=== PATIENT | female | born 1955 | race Caucasian/White ===

== ENCOUNTER 2018-10-03 13:40 | Day surgery (SDC) | payer BC, OTHER ==
[2018-10-03] MEDS ORDERED: BUPIVACAINE HCL/PF 0.5% (5 MG/ML) 30 ML VIAL IJ ONE (14:00)
[2018-10-03] MEDS ORDERED: LIDOCAINE HCL 1%, 10 MG/ML (20ML VIAL) PNB ONE (14:00)
[2018-10-03 14:18] VITALS: BMI 26.7
[2018-10-03] MEDS ORDERED: ROPIVACAINE HCL 0.5% 30ML VIAL ONE (14:58)
--- NOTE | 2018-10-03 15:09 | HP ---
[facility]ellite [facility] - Chief Complaint Chief Complaint: right wrist pain History of Present Illness: s/p fall, right distal radius fracture History Source: Patient Limitations to Obtaining History: No Limitations - Past Medical History Allergies/Adverse Reactions: Allergies Allergy/AdvReac Type Severity Reaction Status Date / Time No Known Drug Allergies Allergy Verified 10/03/18 14:18 - Current Medications Current Medications: Home Medications Medication Instructions Recorded Acetaminophen [Tylenol] 650 mg PO PRN PRN 10/03/18 Escitalopram Oxalate [Lexapro -] 10 mg PO DAILY 10/03/18 Olmesartan/Hydrochlorothiazide 0.5 each PO DAILY 10/03/18 [Benicar Hct 40-25 mg Tablet] Satellite Physical Exam - Physical Examination Vital Signs: Vital Signs Period Temp Pulse Resp BP Sys/Andino Pulse Ox Last 24 Hr 98.2 F-98.2 F 65-65 20-20 109-109/66-66 99 General Appearance: Well Nourished ENT: Clear Lung: Clear to auscultation Heart: Regular rate & rhythm Breasts: Soft Abdomen: Soft Extremities: No edema Satellite Impression/Plan - Impression/Plan Impression: right distal radius fracture Operative Procedure: right distal radius ORIF Date to be Performed: 10/03/18
[2018-10-03] MEDS ORDERED: MIDAZOLAM HCL 2 MG/2 ML SINGLE DOSE VIAL ONE ×2 (15:10→16:34)
[2018-10-03] MEDS ORDERED: LIDOCAINE HCL/PF 2% SDV 5ML VIAL ONE (15:30)
[2018-10-03] MEDS ORDERED: PROPOFOL 20 ML ONE (15:30)
[2018-10-03] MEDS ORDERED: ceFAZolin SODIUM 1 GM VIAL IVPB ONE (15:46)
[2018-10-03] MEDS ORDERED: ceFAZolin SODIUM 1 GM VIAL ONE (15:49)
[2018-10-03] MEDS ORDERED: LIDOCAINE HCL 1%, 10 MG/ML (20ML VIAL) ONE (15:54)
[2018-10-03] MEDS ORDERED: BUPIVACAINE HCL/PF 0.5% (5MG/ML) 10 ML VIAL ONE (15:54)
[2018-10-03] MEDS ORDERED: KETAMINE HCL 200 MG/20 ML VIAL ONE (16:00)
[2018-10-03] MEDS ORDERED: PROMETHAZINE HCL 25 MG/1 ML VIAL IVPUSH PRN (16:44)
[2018-10-03] MEDS ORDERED: ONDANSETRON 4 MG/2 ML VIAL IVPUSH PRN (16:44)
[2018-10-03] MEDS ORDERED: oxyCODONE HCL 5 MG TABLET PO PRN (16:44)
[2018-10-03] MEDS ORDERED: LACTATED RINGERS SOLUTION 1,000 ML IV SCH (16:45)
--- NOTE | 2018-10-03 16:47 | OP ---
Operative Note - Note: Operative Date: 10/03/18 Pre-Operative Diagnosis: right distal radius fracture Operation: right distal radius ORIF Implants: [employer] low profile DVR plate and screws Surgeon: Nelson Glover Entry Operator: Andry Sierra Anesthesiologist/DIESEL ENGINE SPECIALIST: Judy Holloway Anesthesia: General, Local Estimated Blood Loss (mls): 0 Drains, Volume Out (mls): 0 Blood Volume Replaced (mls): 0 Fluid Volume Replaced (mls): 600 Operative Report Dictated: Yes
[2018-10-03] MEDS ORDERED: oxyCODONE HCL 5 MG TABLET ONE (18:10)
[2018-10-03] MEDS ORDERED: oxyCODONE HCL 5 MG TABLET PO ONE (18:18)
[2018-10-03 19:20] VITALS: BP 141/77; PULSE 63; TEMP 97.6
--- NOTE | 2018-10-03 23:52 | SPEC ---
DATE OF OPERATION: 10/03/2018 PREOPERATIVE DIAGNOSIS: Comminuted intraarticular displaced right distal radius fracture. POSTOPERATIVE DIAGNOSIS: Comminuted intraarticular displaced right distal radius fracture. PROCEDURE: Open reduction internal fixation right distal radius. SURGEON: Nelson Glover MD CHECKROOM ATTENDANT: Andry Sierra MD ANESTHESIOLOGIST: Judy Holloway, REF-COUNTER DISH CARRIER DRAINS: None. COMPLICATIONS: None. SPECIMENS: None. BLOOD LOSS: None. BLOOD GIVEN: None. FLUID REPLACEMENT: 600 mL of Plasmalyte. IMPLANT: [place] [employer] low-profile DVR plate and screws. INDICATIONS: Patient is a 63-year-old female with a preoperative diagnosis of a displaced intraarticular comminuted distal radius fracture. After understanding the potential risks, complications, alternatives, and benefits of surgery versus nonsurgical treatment, the patient elected to undergo the procedure. This was after an extensive preoperative discussion. She understands that she her wrist will likely never be normal. DESCRIPTION OF PROCEDURE: The entire case was done under 3.8 loupe magnification. Typical FCR approach was marked out with a marking pen and incision made with No. 15 scalpel blade. Subcutaneous hemostasis was achieved with a bipolar cautery. The radial artery was retracted gently in a radial direction and ulnar to this, using a fresh No. 15 scalpel blade, the muscular fascia was incised. Blunt dissection was done with my index finger down to the volar aspect of the distal radius. Weitlaner retractors were placed deep into the wound for visualization. A periosteal elevator was used to do subperiosteal dissection exposing the fracture site. There was a main transverse component to the distal radius fracture but in addition there were several pieces, some extending towards the radial carpal joint and some towards the distal radial ulnar joint. The fracture site was copiously irrigated and washed out. All debris including hematoma and muscle were removed. A provisional reduction was performed and seemed to come together quite nicely. There was a small metaphyseal defect. X-rays were taken in A-P and lateral planes documenting excellent position of the fracture fragments, restoring radial height inclination and volar tilt. Next a standard [employer] small 3-hole right distal radius DVR plate was placed on the volar aspect of the distal radius. Two K-wires were placed and x-rays were taken documenting excellent position, length and subchondral position. Next we used 3 proximal 3.5 mm screws, 10 mm in length, and 5 distal partially-threaded locking screws from 16 to 20 mm in length. X-rays again were taken documenting excellent position and support of the subchondral bone. All of the guides were removed and passed off the field. Final x-rays were taken in A-P and lateral planes. I was quite happy with the fracture reduction position, position of the radial carpal joint, distal radial ulnar joint length, height and tilt. TOTAL TOURNIQUET TIME: 30 minutes Andry Sierra MD dictating for MD NELSON Way M.D. [id number]
== END 2018-10-03 19:10 | disposition home or self-care (01) ==
LOC: JASU-SURG 13:40
PROVIDERS: ATTEND Orthopaedic Surgery
PROC: 0PSH04Z Reposition Right Radius with Internal Fixation Device, Open Approach (ICD-10-PCS; principal; 2018-10-03 14:30)
DX: S52.571A Other intraarticular fracture of lower end of right radius, initial encounter for closed fracture (principal); X58.XXXA Exposure to other specified factors, initial encounter; Y93.9 Activity, unspecified; Y92.9 Unspecified place or not applicable; Y99.9 Unspecified external cause status
CPT/HCPCS: 25608; C1713; 76000-TC-FY